=== PATIENT | male | born 1965 | race Hispanic/Latino ===

== ENCOUNTER 2017-07-08 07:54 | Day surgery (SDC) | payer OTHER ==
[~2017-07-08] VITALS: Ht 165.1 cm; Wt 86.2 kg
[~2017-07-08 07:54] MED LIST: AMOXICILLIN/CL875 MG PO; CRESTOR5 MG PO; DIOVAN160 MG PO; HYDROCHLOROT12.5 MG PO; KETOCONAZOLE2 % EX; LISINOP/HCTZ1 TAB PO; LOSARTAN POT25 MG PO; LOSARTAN POT50 MG PO; LOVASTATIN10 M1 PO; METOPROL TAR25 M1 PO; MOBIC7.5 M1 PO; NAPROSYN500 MG PO; NAPROXEN DR500 MG PO; RYBIX ODT50 MG PO; VIAGRA100 MG PO; VIAGRA25 MG PO
[2017-07-08 10:22] VITALS: BP 138/81
== END 2017-07-08 10:30 | disposition home or self-care (01) | DRG 951 ==
LOC: ENDO 07:54
PROVIDERS: ATTEND Surgery
PROC: 0DJD8ZZ Inspection of Lower Intestinal Tract, Via Natural or Artificial Opening Endoscopic (ICD-10-PCS; principal; 2017-07-08)
DX: Z12.11 Encounter for screening for malignant neoplasm of colon (principal); I10 Essential (primary) hypertension; E78.5 Hyperlipidemia, unspecified